=== PATIENT | male | born 1990 | race Caucasian/White ===

== ENCOUNTER 2017-09-05 18:44 | Inpatient (IN) | payer OTHER ==
[~2017-09-05] VITALS: Ht 177.8 cm; Wt 79.8 kg
--- NOTE | 2017-09-05 19:18 | ED PSYCHIATRIC COMPLAINT ---
History of Present Illness General Chief Complaint: Psychiatric Related Complaint Stated Complaint: DEPRESSION +SI Source: patient, old records Exam Limitations: no limitations Vital Signs & Intake/Output Vital Signs & Intake/Output Vital Signs Date Time Temp Pulse Resp B/P B/P Pulse O2 O2 Flow FiO2 Mean Ox Delivery Rate 09/06 1119 98.0 84 18 123/73 100 09/06 0858 97.2 84 20 132/67 100 09/06 0643 98.2 74 16 136/78 97 Room Air 09/06 0059 98.7 68 17 132/66 100 Room Air 09/05 2043 98.6 72 16 139/63 99 Room Air 09/05 1931 Room Air 09/05 1903 79 18 135/92 98 Room Air ED Intake and Output 09/06 0000 09/05 1200 Intake Total Output Total Balance Patient 183 lb Weight Allergies Coded Allergies: No Known Allergies (09/05/17) Reconcile Medications No Known Home Medications Triage Note: 26M TO ED DUE TO STRONG SI THOUGHTS TODAY. EXPERIENCING SIGNIFICANT PSYCHOSOCIAL STRESSORS AT THIS TIME AND HAD A THOUGHT ABOUT DRIVING OFF THE HIGHWAY. DENIES ACCESS TO FIREARMS AT HOME. DENIES HISTORY OF ATTEMPTS. DENIES SUPPORTIVE NETWORK. RECENTLY HAD AN AFFAIR AND LOST HIS FIANCE AND CHILD, NOW HAS TO MOVE IN WITH MOTHER. 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 DENIES ETOH/DRUGS OR CIGARETTES. TEARFUL IN TRIAGE. Triage Nurses Notes Reviewed? yes Onset: Gradual Duration: week(s): (1), constant, getting worse Timing: recent history Severity: moderate, severe Severity Numbers: 10 Associated Symptoms: suicidal ideation HPI: 26-year-old male with no medical history presents to the ER as he is having worsening thoughts of wanting to kill himself by driving off the road. The patient states this is been going on for the past several months however getting worse as he is losing his condo and has nowhere to reside other than with his parents. This all stems after he had cheated on his significant other. He denies psychiatric medical history in the past. He denies previous thoughts of wanting to harm himself. He denies tobacco or drug use. He reports a social EtOH use. He reports that he is been having difficulty sleeping as he only 3 hours of sleep last night secondary to these thoughts. (Moraima VALENCIA,Terence) Past History Travel History Traveled to [place] past 21 day No Medical History Any Pertinent Medical History? none Neurological: NONE EENT: NONE Cardiovascular: NONE Respiratory: NONE Gastrointestinal: NONE Hepatic: NONE Renal: NONE Musculoskeletal: NONE Psychiatric: NONE Endocrine: NONE Blood Disorders: NONE Cancer(s): NONE Surgical History Surgical History: none Psychosocial History What is your primary language Iranian Tobacco Use: Never used Family History Hx Contributory? No (Terence Perez) Review of Systems Review of Systems Constitutional: Reports: see HPI. Comments Review of systems: See HPI, All other systems negative. Constitutional, no chills no fever HEENT: no sore throat no congestion Cardiovascular: No chest pain Skin: no rashes, no change in skin Respiratory: No dyspnea no cough GI: No nausea no vomiting, no diarrhea Muscle skeletal: No joint pain, no back pain Neurologic: , no headache Psych: stress depression,. Heme/endocrine: No bruising (Terence Perez) Physical Exam Physical Exam General Appearance: well developed/nourished, alert, awake Neurological/Psychiatric: no motor/sensory deficits, awake, alert, normal mood/ affect Comments: Well-developed well-nourished person in no acute distress HEENT: Normal EENT exam; PERRL, EOMI, HEAD is atraumatic. moist mucous membranes. Neck: Supple, no lymphadenopathy, normal range of motion Back: Nontender, no CVA tenderness. Full range of motion Cardiovascular: Regular rate and rhythms no murmur Respiratory: No respiratory distress. Patient speaking in full complete sentences. Breath sounds clear to auscultation bilaterally: NO W/R/R Extremity: No edema, full range of motion of extremities Neuro: Alert oriented x3, motor sensory normal,There were no obvious focal neurologic abnormalities. Skin: No appreciable rash on exposed skin, skin is warm and dry. Psych: Mood and affect is normal, memory and judgment is normal. SAD PERSONS SAD PERSONS Response Value Male Sex? yes 1 Depression/Hopelessness? yes 2 Rational Thinking Loss? yes 2 Single//? yes 1 Organized/Serious Attempt yes 2 Social Support? has no support 1 Stated Future Intent? yes 2 Total 11 SAD PERSONS Done? yes (Terence Perez) Progress Differential Diagnosis: depression, anxiety Plan of Care: Orders Procedure Date/time Status Regular Diet 09/06 D Active Regular Diet 09/06 B Complete Continuous Observation Monitor 09/06 1900 Active Continuous Observation Monitor 09/06 1500 Active Lab Add-on Test 09/06 1155 Active Patient Data - inpatient psych 09/06 1151 Active Admit to inpatient psych 09/06 1151 Active Continuous Observation Monitor 09/06 1100 Active Continuous Observation Monitor 09/06 0700 Active Vital Signs 09/06 UNK Active Nursing Misc 09/06 UNK Active Alternative Nursing Therapy 09/06 UNK Active Activity/Ambulation 09/06 UNK Active TSH REFLEX 09/05 1957 Complete TOTAL TRIODOTHYROXINE 09/05 1957 Complete FREE T4 09/05 1957 Complete Continuous Observation Monitor 09/06 1847 Active URINE DRUG SCREEN FOR ER ONLY 09/06 1847 Complete ETHANOL 09/06 1847 Complete COMPREHENSIVE METABOLIC PANEL 09/06 1847 Complete CBC WITHOUT DIFFERENTIAL 09/06 1847 Complete ED CRISIS PSYCH CONSULT 09/06 1847 Active Current Medications Sig/Barbi Start time Last Medication Dose Stop Time Status Admin Acetaminophen 650 MG Q6P PRN 09/06 1200 UNVr (Tylenol) Al Hydroxide/Mg 30 ML Q4-6 PRN PRN 09/06 1200 UNVr Hydroxide (Maalox Plus) Benztropine Mesylate 1 MG Q6P PRN 09/06 1200 UNVr (Cogentin 1 MG Tablet) Benztropine Mesylate 1 MG Q6P PRN 09/06 1200 UNVr (Cogentin) Gabapentin 300 MG Q6P PRN 09/06 1200 UNVr (Neurontin) Haloperidol 5 MG Q6P PRN 09/06 1200 UNVr (Haldol) Haloperidol 5 MG Q6P PRN 09/06 1200 UNVr (Haldol) Lorazepam 2 MG Q6P PRN 09/06 1200 UNVr (Ativan) Magnesium Hydroxide 30 ML AT BEDTIME PRN 09/06 1200 UNVr (Milk Of Magnesia) Trazodone HCl 50 MG AT BEDTIME NEED.. 09/06 1200 UNVr (Desyrel) Laboratory Tests 09/05/172002: Urine Opiates Screen < 100, Methadone Screen < 40, Barbiturate Screen < 60, Ur Phencyclidine Scrn < 6.00, Amphetamines Screen < 100, U Benzodiazepines Scrn < 85, Urine Cocaine Screen < 50, Urine Cannabis Screen < 5.00 09/05/171957: Anion Gap 14, Estimated GFR > 60, BUN/Creatinine Ratio 12.2, Glucose 55 L, Calcium 9.7, Total Bilirubin 0.6, AST 33, ALT 27, Alkaline Phosphatase 58, Total Protein 8.3 H, Albumin 4.7, Globulin 3.6, Albumin/Globulin Ratio 1.3, Free T4 1.00, Total T3 1.21, TSH &T3 &Free T4 Intrp 1.120, CBC w Diff NO MAN DIFF REQ, RBC 4.72, MCV 92.3, MCH 31.0, MCHC 33.6, RDW 13.4, MPV 9.0, Gran % 64.0, Lymphocytes % 25.2, Monocytes % 9.8 H, Eosinophils % 0.6, Basophils % 0.4, Absolute Granulocytes 4.7, Absolute Lymphocytes 1.9, Absolute Monocytes 0.7 H, Absolute Eosinophils 0, Absolute Basophils 0, Serum Alcohol < 10.0 labs ordered,pt calm cooperative at this time, d/w him plan of care and need for crisis consult which pt is in agreement with. 2154 case discussed with crisis patient is a bed search for tomorrow morning 2344 case is discussed with and signed out to Dr. Gibbs pending bed search in the morning Hand-Off Endorsed To: Trace Gibbs MD Endorsed Time: 0100 Pending: other (crisis bed search) (Terence Perez) Hand-Off Endorsed To: Eduardo Lomax MD Endorsed Time: 0700 Pending: other (Trace Gibbs MD) Departure Departure Disposition: STILL A PATIENT Condition: Stable Clinical Impression Primary Impression: Depression Departure Forms: Customer Survey General Discharge Information Prescriptions: Current Visit Scripts No Known Home Medications (Terence Perez) PA/SYSTEM PLANNING ENGINEER Co-Sign Statement Statement: ED Attending supervision documentation- [] I saw and evaluated the patient. I have also reviewed all the pertinent lab results and diagnostic results. I agree with the findings and the plan of care as documented in the PA's/SYSTEM PLANNING ENGINEER's documentation. [x] I have reviewed the ED Record and agree with the PA's/SYSTEM PLANNING ENGINEER's documentation. [] Additions or exceptions (if any) to the PAs/SYSTEM PLANNING ENGINEER's note and plan are summarized below: [] (Trace Gibbs MD) Departure Time of Disposition: 1408 Psych Admission Note Psychiatric Admission: I have seen and evaluated ARON KELLEY. I have also reviewed all the pertinent lab results and diagnostic results. WARRENARON will be admitted to our inpatient Psychiatric unit for treatment and care. (Monie LOO,Eduardo)
[2017-09-05 20:08] LABS: ABSOLUTE BASOPHIL COUNT 0 /CUMM (0.0-0.2); ABSOLUTE EOSINOPHIL COUNT 0 /CUMM (0.0-0.7); ABSOLUTE GRANULOCYTE CT 4.7 /CUMM (1.4-6.5); ABSOLUTE LYMPH COUNT 1.9 /CUMM (1.2-3.4); ABSOLUTE MONOCYTE COUNT 0.7 /CUMM (0.10-0.60); BASOPHIL % 0.4 % (0.0-2.0); EOSINOPHIL % 0.6 % (0-5); HEMATOCRIT 43.6 % (42-52); MEAN CORPUSCULAR HGB CONC 33.6 G/DL (33.0-37.0); MEAN CORPUSCULAR VOLUME 92.3 FL (80.0-94.0); PLATELET COUNT 201 /CUMM (130-400); RBC DISTRIBUTION WIDTH 13.4 % (11.5-14.5); RED BLOOD CELL CT 4.72 /CUMM (4.70-6.10); WHITE BLOOD CELL COUNT 7.4 /CUMM (4.8-10.8)
--- NOTE | 2017-09-05 21:27 | ED PSYCH CRISIS CONSULTATION ---
Crisis Consult Basic Assessment Date of Consult: 09/05/17 Insurance Authorization: Insurance #1: Insurance name: ISIDORO GONZALEZ Phone number: Policy number: [id number] Group number: Authorization number: ED Provider: Patient's ED Provider: Terence Perez Primary Care Physician: Patient's PCP: Unknown PCP's Phone Number: Current Psychiatrist: Dr. Sesay Chief Complaint: Psychiatric Related Complaint Patient's Quote: "I never thought I'd see myself here, like this" Present Illness: Pt is a 26 year old male who presents in the ED with suicidal ideation. Pt presented as tearful and sad throughout this interview. Pt reports that he has ongoing thoughts and feelings about swerving into traffic while he is on the highway. Pt reports he has been having suicidal thoughts intermittently since May, but today, the thoughts were much stronger and uncomfortable. Pt reports his depression is an 8 and his anxiety is an 8 on a scale of 1-10, with 10 being the most severe. Pt also reports that he has not slept well, and has a poor appetite. Pt reports feeling helpless and hopeless. Pt also reports Im scared to go home and this feeling is unbearable. Pt denies HI, AH/VH. Pt shared that in May, he and his long-term fianc (12 years) broke up after he was having an affair with a woman from work. He pursued the relationship with the woman he was having the affair with and she just recently (within the last day or 2) broke up with him after finding that he was texting another female. Pt reports he has not been single since he was 11 years old and doesnt know how to handle his emotions. He also reports he has a lot of guilt regarding the affair he had on his ex-fianc as she was his high school sweetheart and they have a child (2 years old) together. Pt also reports that he is moving out of his condo and will be moving in with his mother. He reports he will stay with his mother for only a few weeks until he can find his own apartment. Pt denies any substance abuse history and his tox screens were negative for substances. As a child, Emmanuel reports he had to grow up sooner than others. He shared that his father was absent and his mother was sent to senior care for a short time when he was around 11 years old. 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 Pt reports he receives outpatient counseling at [facility] in [place]. His therapist is Layne. He reports he has not been to therapy since May because he needed to cancel at times and because he was unable to get appointments. C-SSRS completed. Pt identified the following risk factors: suicidal thoughts with method, recent loss, feeling alone, not receiving treatment, hopelessness, helplessness, depression, anxiety and a method for suicide available. Pt identified the follow protective factors: identifies reasons for living, has a responsibility to family, supportive family, engaged in work. Crisis spoke to Fadia , ex-lucian. She repots that pt called her very upset today and corroborated his story regarding their history together. She identified that he was extremely sad and tearful and feared for his safety. She reports pt suggested that he go to the hospital and she agreed. She drove alongside pt to the hospital so she could ensure he got there safely. Fadia asked to be kept informed regarding the plan for Emmanuel. This administrative underwriter informed her that he would be going into an inpatient bed and a bed search would be performed. Patient's Address: [address] [place] [address] Other Phone Number: Who Do You Live With? Patient/Self Family/Informants Interviewed: Fadia crystal [phone] Allergies - Coded Allergies: No Known Allergies (09/05/17) Current Medications - No Known Home Medications Laboratory Results: Laboratory Tests 09/05/172002: Urine Opiates Screen < 100, Methadone Screen < 40, Barbiturate Screen < 60, Ur Phencyclidine Scrn < 6.00, Amphetamines Screen < 100, U Benzodiazepines Scrn < 85, Urine Cocaine Screen < 50, Urine Cannabis Screen < 5.00 09/05/171957: Anion Gap 14, Estimated GFR > 60, BUN/Creatinine Ratio 12.2, Glucose 55 L, Calcium 9.7, Total Bilirubin 0.6, AST 33, ALT 27, Alkaline Phosphatase 58, Total Protein 8.3 H, Albumin 4.7, Globulin 3.6, Albumin/Globulin Ratio 1.3, CBC w Diff NO MAN DIFF REQ, RBC 4.72, MCV 92.3, MCH 31.0, MCHC 33.6, RDW 13.4, MPV 9.0 , Gran % 64.0, Lymphocytes % 25.2, Monocytes % 9.8 H, Eosinophils % 0.6, Basophils % 0.4, Absolute Granulocytes 4.7, Absolute Lymphocytes 1.9, Absolute Monocytes 0.7 H, Absolute Eosinophils 0, Absolute Basophils 0, Serum Alcohol < 10.0 (Renaldi FIELD CARE COORDINATOR,Maria Luisa) Past History Past Medical History Neurological: NONE EENT: NONE Cardiovascular: NONE Respiratory: NONE Gastrointestinal: NONE Hepatic: NONE Renal: NONE Musculoskeletal: NONE Psychiatric: NONE Endocrine: NONE Blood Disorders: NONE Cancer(s): NONE Psychosocial History Strengths/Capabilities: Pt is seeking out help. He has good insight into his emotions and is open to talking about his feelings. Physical Limitations (Interventions): none Psychiatric Treatment History Psych Treatment Psychiatric Treatment Yes Inpatient Treatment No Outpatient Treatment Yes Location of Treatment [facility] - current - for about a year Reason for Treatment Pt has been unable to follow up on scheduling a session since May Dates of Treatment current for about 1 year Response to Treatment Pt reports he would like to resume treatment. Diagnosis by History: none reported Substance Use/Abuse History Drug Use/Abuse Substances Used/Abused No First Use pt denies Last Used pt denies How much used/taken pt denies How often pt denies For how long pt denies Route of use pt denies Substance Abuse Treatment Substance Abuse Treatment Past Substance Abuse TX No Inpatient Treatment No Outpatient Treatment No Location of Treatment n/a Reason for Treatment n/a Dates of Treatment n/a Response to Treatment n/a (Renaldi FIELD CARE COORDINATOR,Maria Luisa) Current Mental Status Mental Status Orientation: Person, Place, Situation Affect: Depressed, Hopeless, Sad Speech: WNL Neuro-vegetative: WNL Appearance Appearance- Dress/Hygiene: Pt was dressed in hospital scrubs, he appeared to have good hygeine. He was tearful and sad throughout this interview, but made good eye contact. Behaviors Thought Process: WNL Thought Content: WNL Memory: WNL Insight: WNL SI/HI Risk Assessment Past Suicidal Ideation/Attempts Yes Current Suicidal Ideation/Att Yes Past Homicidal Ideation/Att: No Current Homicidal Ideation/Attempts No Degree of Intent: Thoughts/No Intent, Pt reports throughts to swerve into traffic Danger To: Self Risk Factors: access to lethal means, high anxiety/distress, lives alone, male Lethality Ratin PTSD Checklist PTSD Done? patient declined (no trauma hx reported) ED Management Sitter: Yes Restraints: No (Renaldi FIELD CARE COORDINATOR,Maria Luisa) DSM5/PS Stressors/Medical Prob Diagnosis' (DSM 5, Stressors, Medical): F32.9 - Unspecified Depressive Disorder Medical - none noted Stressors: recent break-up, moving back in with mother Current GAF: 28 (Renaldi FIELD CARE COORDINATOR,Maria Luisa) Departure Disposition Psych Medical Clearance Date: 09/05/17 Medically Cleared at: 1999 Time Started: 1999 Time Ended: 2044 Psychiatrist Consulted: Dr. Sesay Date Disposition Established: 09/05/17 Time Disposition Established: 2049 Plan for Disposition - Modality: Inpatient Psychiatry Facility: bed search Rationale for Disposition: Crisis spoke with Dr. Sesay who agrees that pt requires inpatient hospitalization as he is at risk to himself. Pt presents with SI to swerve into traffic on the highway. Pt also reports "I'm afraid to go home" and "this feeling is unbearable". Type of IP Admission: Voluntary Referrals Unknown (PCP/Family) (Renalmireille BLACK,Maria Luisa) Addendum Note Addendum Pt to transfer to CPS unit. Isidoro authorization recieved #[id number]. 3 day authorization received. Start date 09/06/17-09/08/17. (Danial Giraldo LPC)
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
[2017-09-06 16:36] VITALS: BP 146/66
[2017-09-06 19:44] VITALS: BP 126/76
[2017-09-07 07:51] VITALS: BP 138/72
--- NOTE | 2017-09-07 08:47 | CPS PROVIDER INIT ASMT PSYCH ---
Psychiatric Admission Commercial Singer's Note Reviewed: Yes Patient Seen and Examined: Yes Identifying Information: The patient is a 26-year-old white male who presented to the emergency department with suicidal ideation Chief Complaint: "I never thought I had see myself here, like this." Reaction to Hospitalization: The patient was admitted voluntarily History of Present Illness Onset of Illness: The patient's symptoms and current episode seems to have started in May after his long-term fianc broke up with him after she discovered that he was having an affair with a woman from work. Circumstances Leading to Admission: The patient presented to our emergency room at [facility] as "tearful and sad throughout the interview, has ongoing thoughts and feelings about swerving into traffic while he is on the highway, has been having thoughts of suicide intermittently since May, reported his depression as an 8 out of 10 and his anxiety as an 8 out of 10." Problem(s) Justifying Need for Admission: Thoughts of suicide which have been intermittent since May but at the day of his presentation to the emergency room on September 05, 2017 there were stronger and more frequent Past Psychiatric History Past Diagnosis(es)- if any: Although the patient reported receiving some counseling at [facility] for about a year he was not sure about any particular diagnosis that he was given Past Precipitating Factors- if any: This is the patient's first inpatient psychiatric admission. It seems that the precipitant factor in this particular case was breakup with long-term fianc - Include inpatient and outpatient treatment Treatment History: No prior inpatient psychiatric admissions but he has had treatment at [facility] for about a year History of Suicide Attempts or Gestures No history of suicide attempts Substance Abuse History: The patient denied abusing alcohol or substances Allergies: Coded Allergies: No Known Allergies (09/05/17) Home Med List: The patient is not on any psychiatric medications or nonpsychiatric medications - Include any medical condition(s) that may - impact the patient's recovery/remission Past Medical History: The patient is physically healthy Past History Medical History Neurological: NONE EENT: NONE Cardiovascular: NONE Respiratory: NONE Gastrointestinal: NONE Hepatic: NONE Renal: NONE Musculoskeletal: NONE Psychiatric: NONE Endocrine: NONE Blood Disorders: NONE Cancer(s): NONE Isolation History: Standard Influenza Vaccine: 05/09/17 Surgical History Surgical History: none Psychiatric Family/Social Hx Family History Psychiatric Illness: The patient denied knowledge of any family psychiatric history Substance Use: Patient reported that his father and his paternal grandfather were both drinkers Suicides: Patient denied any knowledge of suicides among his blood relations Social History Living Situation: The patient would be moving this coming weekend to his mother's apartment Significant Relationships (family/friends): Mother, ex fiance and child Education: College educated 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 - #1 Recognizing dangerous situations. - #2 Coping Skills. - #3 Basic information about quitting. Status of Tobacco Cessation Counseling: Not Applicable Cessation Med Status Not Applicable Alcohol Screening - ETOH screen POS if BAL >=80 or Audit-C>= M4/F3 Audit-C Score from Diag Assess: 2 Blood Alcohol Level: Laboratory Tests 09/05 1957 Toxicology Serum Alcohol (<10 MG/DL) < 10.0 Alcohol Use Screening Results: Neg per Audit C &/or BAL - If ETOH counseling indicated - the following topics are required. - #1 Express concern about the patient's - drinking at unhealthy levels, include informing - of national norms for moderate drinking: - men <= 14 drinks/week, max 4 drinks/occasion - women <= 7 drinks/week, max 3 drinks/occasion - #2 Providing feedback, including linking alcohol to - negative physical effects (liver injury, hypertension) - negative emotional effects (relationship problems and - depression) - negative occupational consequences (reduced work - performance) - #3 Advising the patient to abstain from alcohol or - to drink below national norms for moderate drinking - (as listed above). Status of ETOH Use Counseling: N/A B/C NO ETOH Use Metabolic Screening - Screen if on a Neuroleptic Medication - Metabolic screening should include: - Blood Pressure, BMI, Glucose or Hgb A1c, & a - Lipid profile from within the past 365 days. Metabolic Screening ([X]) Not Applicable, patient not on a neuroleptic. Exam and Plan Mental Status Examination Ambulation Status: The patient is independently mobile and steady on his feet. Appearance: Unremarkable appearance. Attitude towards examiner: Calm and cooperative. Psychomotor activity: Normal psychomotor activity. Behavior: No abnormal or bizarre behaviors. Quality of speech: Normal speech. Affect: Good range of affect. Mood: Denied feeling depressed today. Suicidal Ideation: Denied thoughts of suicide. Homicidal Ideation: Denied violent thoughts or thoughts of homicide. Hallucinations: Denied hallucinations. Paranoid/Delusional Material: The patient denied feeling paranoid, and there were no delusions during the interview. Difficulties with thought organization: The patient was coherent, there were no difficulties with thought organization. Insight: Patient showed good insight. Judgment: Good judgment. Orientation: Patient was alert and oriented to time, place, and person. Cognition: There were no difficulties with attention and concentration during the interview. Memory Function: No evidence of short-term memory impairment. Estimate of intellectual functioning: Average Assets/Strengths Patient Identified Assets/Strengths: Patient is sociable and likable and intelligence. Impression/Plan Impression and Plan: 26-year-old single who presents with thoughts of suicide after breakup with fianc. The patient has no history of prior inpatient psychiatric admissions and no history of suicide attempts. - Include all active medical diagnosis that require tx DSM 5 Diagnosis(es): Unspecified depressive disorder, most likely adjustment disorder with with depressed mood - Initial Tx Plan for Active Psych & Medical Conditions Treatment Plan: Inpatient psychiatric care with safety checks every 15 minutes Nursing assessments, vital signs, and patient education and Group therapy, activity therapy, and milieu therapy, Biopsychosocial assessment by social work, collateral, and aftercare planning Patient will be evaluated daily by the psychiatrist for evaluation of his mental status and further discussion regarding psychopharmacological interventions - Factors that would help patient function - in a less restrictive setting. Factors: The patient will be discharge if he continues to deny suicidal ideation for the next 24 hours .
[2017-09-07 12:16] VITALS: BP 129/69
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
--- NOTE | 2017-09-07 14:36 | Patient Discharge Instructions ---
Psych Discharge Inst General Discharge Information Reason for Admission: thoughts of suicide Psy Discharge Primary Diag+ Unspecified Depressive Disorder Summary Tests/Major Procedures no abnormalities Studies Pending at DC: none Patient Instructions Contact Information Your Psychiatrist on [facility] was Jonathan Armenta MD * If you are experiencing an emergency related to this hospitalization, please call [phone] to contact the treating psychiatrist or the psychiatrist-on- call. * To Request a copy of your medical records, please contact the Medical Records Department at [phone]. * To request results of studies pending at the time of discharge, please call [phone]. * Continue your Medications until directed to stop by your Healthcare provider. General Medication Information Please continue to take your new medications and your continued home medications , unless otherwise indicated on your discharge medication list, or unless directed by your MD or WHIPPED TOPPING FINISHER to stop them. Special Instructions Diet Regular Activity Normal - Tobacco Use Treatment Offered Post DC Medications Offered: Not Applicable Post DC Tobacco Treatment Plan: Not Applicable - EtOH/Drug Use D/O Treatment Offered Post DC Medications Offered: NA-No EtOH/Drug Use D/O Post DC EtOH/SubAbuse TX Plan: NA-No EtOH/Drug Use D/O Metabolic Screening ([X]) Not Applicable, patient not on a neuroleptic. Advance Directives Does the Patient have Medical Advance Directives No/Refused further info Does Pt have Psychiatric Advance Directives? No/Refused further info Does Patient have a Designated Surrogate Decision Maker: No Information About Psychiatric Advance Directives Provided? Refused Discharge Plan Post Hospital Treatment Plan: IOP vs. OP
[2017-09-07 16:08] VITALS: BP 142/71
--- NOTE | 2017-09-07 16:20 | SOCIAL WORKER PROG NOTE PSYCH ---
Social Work Progress Note Progress Note This commercial loan underwriter met with patient. Patient identified stressors related to the end of a relationship as the trigger for his increased depression and anxiety, ultimately leading to the inpatient admission. Patient also shared that his uncle (cancer) a few months ago and that he is scheduled to move out of his condo on 09/12/17. Patient stated that he plans to live with his mother "short term" until he is able to find a new apartment. Patient expressed concern about living with his mother due to the small apartment, but stated that he is focusing on this as a temporary arrangement. Patient stated that he works in [place], [place] and is agreeable to attending IOP if it meets in the evening, in order to avoid conflict with his work schedule. He stated that he had previously been in treatment with Layne at [facility], however, had not been consistent with appointments and had not seen her in quite some time. This commercial loan underwriter and patient discussed the importance of attending treatment consistently and as scheduled. Patient denied SI/HI/AH/VH. He was agreeable to schedule a family meeting with his mother. This commercial loan underwriter spoke with patient's mother and a family meeting has been scheduled for 10:15am on 09/08/17.
--- NOTE | 2017-09-07 18:48 | History & Physical ---
General Information and HPI History of Present Illness: This young male without any previous history of psychiatric admission in [facility] or any other hospital presents to the emergency room because of increased depression and afraid of hurting himself or other people. He was admitted because of suicidal ideation and increased depression. He reports that the things have been getting worse for last few months since he split up with his fiance and has a child with her. He is generally healthy and denies any ongoing medical problems. He denies any previous significant medical problems or surgeries or prolonged illnesses. He claims his parents are both alive but healthy and is and living in different states. Denies smoking or excessive drinking and claims he rarely drinks a little bit of alcohol socially and denies any drug abuse. 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 EENTM: Denies: no symptoms. Cardiovascular: Denies: no symptoms. Respiratory: Denies: no symptoms. GI: Denies: no symptoms. Genitourinary: Denies: no symptoms. Musculoskeletal: Denies: no symptoms. Skin: Denies: no symptoms. Neurological/Psychological: Reports: see HPI, anxiety, depressed. Hematologic/Endocrine: Denies: no symptoms. All Other Systems: Reviewed and Negative Exam & Diagnostic Data Last 24 Hrs of Vital Signs/I&O Vital Signs Date Time Temp Pulse Resp B/P B/P Pulse O2 O2 Flow FiO2 Mean Ox Delivery Rate 09/07 1608 63 142/71 09/07 1216 71 129/69 09/07 0751 96.6 62 138/72 09/06 1944 97.5 61 126/76 Intake & Output 09/07 1600 09/07 0800 09/07 0000 Intake Total Output Total Balance Patient 176 lb Weight Physical Exam General Appearance Alert, Oriented X3, Cooperative, No Acute Distress Skin No Rashes, No Breakdown, No Significant Lesion HEENT Atraumatic, PERRLA, EOMI, Mucous Membr. moist/pink Neck Supple, No JVD, No thryomegaly, +2 Carotid Pulse wo Bruit Lymphatic Cervical nl Cardiovascular Regular Rate, Normal S1, Normal S2, No Murmurs, Gallops, Rubs Lungs Clear to Auscultation, Normal Air Movement Abdomen Soft, No Tenderness, No Hepatospenomegaly, No Masses Neurological Exam Findings: Normal Gait, Normal Speech, Strength at 5/5 X4 Ext, Normal Tone, Cranial Nerves 3-12 NL, Reflexes 2+ Cranial Nerves II through XII: WNL Extremities No Clubbing, No Cyanosis, No Edema, No Tenderness/Swelling Assessment/Plan Assessment: This young male is admitted for increasing depression and suicidal ideation. Does not have any prolonged history of previous psychiatric treatment except outpatient treatment with a counselor that he stopped about 5 months ago. He does not have any significant medical illness and is fairly stable from medical standpoint . His admission CBC and electrolytes and liver functions are all within normal limits and he does not require any definitive workup or treatment from medical standpoint. As Ranked By This Provider Problem List: 1. Depression Miscellaneous Miscellaneous Documentation Attending Case Discussed With: Kathi LOO,Jonathan Primary Care Physician: Unknown Patient sees these Specialists none Level of Patient Care: MANNY Dobbins Attending MD Review Statement Attending Statement Attending MD Statement: examined this patient, reviewed EMR data (avail), discussed with nursing Attending Assessment/Plan: This young male was admitted for increasing depression and suicidal ideation. He is stable from medical standpoint without any acute medical illness. His admission blood work is normal and he does not require any further workup or treatment from medical standpoint and will be seen only as needed.
[2017-09-07 19:38] VITALS: BP 137/84
[2017-09-08 07:36] VITALS: BP 119/69
[2017-09-08 12:20] VITALS: BP 135/64
--- NOTE | 2017-09-08 14:23 | CP SOUTH PROGRESS NOTE PSYCH ---
Psych (Inpt) Progress Note Progress Note I had a family meeting with the patient and his mother with Mya Escalante LCSW present for the family meeting. Please see the notes of Mya Escalante LCSW regarding the family meeting details Mental Status Examination The patient is independently mobile and steady on his feet. Unremarkable appearance. Calm and cooperative. Normal psychomotor activity. No abnormal or bizarre behaviors. Normal speech. Good range of affect. Denied feeling depressed today. Denied thoughts of suicide. Denied violent thoughts or thoughts of homicide. Denied hallucinations. The patient denied feeling paranoid, and there were no delusions during the interview. The patient was coherent, there were no difficulties with thought organization. Patient showed good insight. Good judgment. Patient was alert and oriented to time, place, and person. There were no difficulties with attention and concentration during the interview. No evidence of short-term memory impairment. Assessment: 26-year-old single who presents with thoughts of suicide after breakup with fianc. The patient has no history of prior inpatient psychiatric admissions and no history of suicide attempts. DSM 5 Diagnosis(es): Unspecified depressive disorder, most likely adjustment disorder with with depressed mood Treatment Plan: Inpatient psychiatric care with safety checks every 15 minutes, Nursing assessments, vital signs, and patient education and Group therapy, activity therapy, and milieu therapy, Biopsychosocial assessment by social work, collateral, and aftercare planning Patient will be evaluated daily by the psychiatrist for evaluation of his mental status and further discussion regarding psychopharmacological interventions
[2017-09-08 16:10] VITALS: BP 136/72
--- NOTE | 2017-09-08 17:19 | SOCIAL WORKER PROG NOTE PSYCH ---
Social Work Progress Note Progress Note Dr. Armenta and this specification writer met with patient. Patient discussed how he feels that he has benefitted from this inpatient stay through having the "opportunity to decompress and disconnect." Patient's mother discussed concerns that she had prior to admission. Patient and his mother agreed to have daily contact with one another to "check in." He stated that he would like to continue with treatment upon discharge. He was agreeable to attending an IOP, however, stated that it would need to be in the evening. If a MH IOP is not identified during evening hours, patient stated that he would like to return to his individual therapist and inquire about more frequent sessions (i.e. twice per week). Patient stated that he would like to stay with his mother temporarily upon discharge while looking for more permanent living arrangements (as opposed to a respite bed or other living temporary arrangements). A safety plan was also discussed in which the patient would call his mother or friend. He was also informed that he would be provided with crisis numbers and warm lines upon discharge. Dr. Armenta discussed the option of medication and that the patient could request this at a later time if he feels that it would be helpful (patient is not currently prescribed any medication). Anticipated discharge date has been identified for tomorrow. This specification writer left a for [facility] following the family meeting requesting to speak with this individual therapist, Rubi. A call back number was provided. This specification writer spoke with Michelle at [employer] ([phone], ext. [phone]) for a concurrent review. She stated that a review is not needed today if the patient is discharging tomorrow. This specification writer contacted the following IOP programs (list provided by Michelle/Isidoro) inquiry about evening mental health IOP: - [facility], , vm left with call back number - [facility], , vm left with call back number - [facility], , vm left with call back number - [facility], - Evening MH IOP, Mon-Fri from 6p-9p - [facility], , unable to reach provider
[2017-09-08 20:03] VITALS: BP 130/95
[2017-09-09 07:43] VITALS: BP 126/80
--- NOTE | 2017-09-09 08:49 | CP SOUTH PROGRESS NOTE PSYCH ---
Psych (Inpt) Progress Note Progress Note Vital Signs Date Time Temp Pulse B/P B/P Pulse O2 FiO2 09/09 0743 96.8 72 126/80 09/08 2002 98.1 95 130/95 09/08 1610 86 136/72 Mental Status Examination: He was alert and oriented to time, place, and person. There were no difficulties with attention and concentration during the interview. No evidence of short-term memory impairment. Emmanuel was calm and cooperative. He showed normal psychomotor activity & no abnormal or bizarre behaviors. He is talkative with mild pressure (but this seemed to be a chronic trait not a hypomanic sign as evidenced by his retrospective account and his mother's account in yesterday's meeting). His affect was bright and animated, he denied feeling depressed or hopeless. He denied thoughts of suicide. Denied violent thoughts or thoughts of homicide. Denied hallucinations. The patient denied feeling paranoid, and there were no delusions during the interview. The patient was coherent, there were no difficulties with thought organization. Emmanuel seems to have good insight and judgment. Assessment: 26-year-old single who presents with thoughts of suicide after breakup with fiance. The patient has no history of prior inpatient psychiatric admissions and no history of suicide attempts. Discharge Diagnosis: Unspecified depressive disorder, most likely adjustment disorder with with depressed mood Treatment Plan: D/C Home with plan to follow up with an evening [facility] or [facility]
--- NOTE | 2017-09-09 12:01 | DISCHARGE SUMMARY REPORT-PSYCH ---
Visit Information Visit Dates/Diagnosis' Admission Date: 09/06/17 Discharge Date: 09/09/17 Reason for Admission: thoughts of suicide Psy Discharge Primary Diag: Unspecified Depressive Disorder Psy Discharge Secondary Diag: Most likely an Adjustment Disorder with depressed mood and anxiety Hospital Course Significant Lab Findings: No significant lab abnormalities Course Complications: The patient did not have any complications while he was on the inpatient psychiatric unit Consultations: The patient had a history and physical examination when he was on the inpatient psychiatric unit. Please refer to the patient's electronic health record for the mortgage lender's H&P note Allergies: Coded Allergies: No Known Allergies (09/05/17) Hospital Course/TX Response: The patient stayed for a relatively short period of stay. The patient was admitted on September 06, 2017. I saw the patient for an initial psychiatric assessment on September 07, 2017. My impression was: [id number] single who presents with thoughts of suicide after breakup with fianc. The patient has no history of prior inpatient psychiatric admissions and no history of suicide attempts. DSM 5 Diagnosis(es): Unspecified depressive disorder, most likely adjustment disorder with with depressed mood Initial treatment Plan: Inpatient psychiatric care with safety checks every 15 minutes Nursing assessments, vital signs, and patient education and Group therapy, activity therapy, and milieu therapy, Biopsychosocial assessment by social work, collateral, and aftercare planning Patient will be evaluated daily by the psychiatrist for evaluation of his mental status and further discussion regarding psychopharmacological interventions 09/08/2017: No medications, Mya Escalante LCSW and I had a family meeting with patient's mother 09/09/2017: The Day of Discharge Mental Status Examination: He was alert and oriented to time, place, and person. There were no difficulties with attention and concentration during the interview. No evidence of short-term memory impairment. Emmanuel was calm and cooperative. He showed normal psychomotor activity & no abnormal or bizarre behaviors. He is talkative with mild pressure (but this seemed to be a chronic trait not a hypomanic sign as evidenced by his retrospective account and his mother's account in yesterday's meeting). His affect was bright and animated, he denied feeling depressed or hopeless. He denied thoughts of suicide. Denied violent thoughts or thoughts of homicide. Denied hallucinations. The patient denied feeling paranoid, and there were no delusions during the interview. The patient was coherent, there were no difficulties with thought organization. Emmanuel seems to have good insight and judgment. Assessment: 26-year-old single who presents with thoughts of suicide after breakup with fiance. The patient has no history of prior inpatient psychiatric admissions and no history of suicide attempts. Discharge Diagnosis: Unspecified depressive disorder, most likely adjustment disorder with with depressed mood Treatment Plan: D/C Home with plan to follow up with an evening [facility] or [facility] Discharge HBIPS - Tobacco Use Treatment Offered Post DC Medications Offered: Not Applicable Post DC Tobacco Treatment Plan: Not Applicable - EtOH/Drug Use D/O Treatment Offered Post DC Medications Offered: NA-No EtOH/Drug Use D/O Post DC EtOH/SubAbuse TX Plan: NA-No EtOH/Drug Use D/O Metabolic Screening - Screen if on a Neuroleptic Medication - Metabolic screening should include: - Blood Pressure, BMI, Glucose or Hgb A1c, & a - Lipid profile from within the past 365 days. Metabolic Screening ([X]) Not Applicable, patient not on a neuroleptic. Discharge Instructions General Discharge Information Multiple Neuroleptics: Not Applicable Discharge Diet Regular Discharge Activity Normal DC Disposition: Home Referrals Ordered Referrals Provider Referral 09/14/17 For Providers: [Rubi Matamoros LCSW] For Groups: [[facility]] [address] [phone] Appointment: Thursday, September 14, 2017 at 4pm with Rubi Matamoros LCSW (IOP information: [facility] in [place], [place] [phone]) Provider Referral 09/16/17 For Providers: [Rubi Matamoros LCSW] For Groups: [[facility]] [address] [phone] Appointment: August at 4pm with Rubi Matamoros LCSW Studies Pending at Discharge none Copies To: NONE
[2017-09-09 12:17] VITALS: BP 131/62
--- NOTE | 2017-09-09 18:01 | SOCIAL WORKER PROG NOTE PSYCH ---
Social Work Progress Note Progress Note This filing writer spoke with admissions at [facility] regarding their IOP. This filing writer was informed that their evening IOP is a combination of MH and SA and an intake may be scheduled by calling this number ([phone]). Additionally, no other [place] locations offer evening MH IOP. This filing writer met with patient. He was informed of the information learned about the [place] IOP. Patient stated that he would prefer to schedule individual therapy with Rubi Matamoros at [facility]. This filing writer and patient called the office and succeeded in reaching the standard machine stitcher, Nanda. She stated that he would be able to schedule two sessions per week and the following appointments were scheduled: - 09/14/17, at 4pm - , 09/16/17, at 4pm Nanda was provided with a phone number should Rubi Matamoros wish to contact this filing writer. Patient stated that he would speak with Rubi about additional treatment (IOP or group therapy options) and did not need any additional referrals at this time. He was provided with the [place] IOP phone number. Patient described his mood as "great" and was looking forward to discharge today. He stated that he will stay with his mother temporarily. He denied SI/ HI/AH/VH. He identified a safety plan in which "I will call my mom and suppportive friend." He was informed that he would be provided with crisis numbers and warm lines upon discharge, which he was agreeable to utilizing. Faxed Referral(s) Referred To: Rubi Matamoros LCSW Transition of Care Documents sent: Health Summary Faxed to: Rubi Matamoros LCSW/[facility] Fax #: [phone] Faxed by: Nguyen Escalante LCSW Date faxed: 09/09/17 Time Faxed: [phone]
--- NOTE | 2017-09-10 11:22 | SOCIAL WORKER PROG NOTE PSYCH ---
Social Work Progress Note Progress Note This process description writer spoke with Rambo (Isidoro reviewer covering for Mya, , ext. [phone]) by phone to provide discharge clinical.
== END 2017-09-09 14:43 | DRG 881 ==
LOC: ERH 18:44 → ERHI 09-06 11:51 → CP SOUTH 09-06 11:51 → ENTRNSPT 09-06 15:56 → EDTRNSPT 09-06 16:09 → EDTRNSPTSTS 09-06 16:09 → CP SOUTH 09-06 16:18 → CMPTRNSPT 09-06 16:20 → CP SOUTH 09-07 10:11
PROVIDERS: Physician Assistant Medical
DX: F32.9 Major depressive disorder, single episode, unspecified (principal)
CPT/HCPCS: 80307; G0463; G0480